=== PATIENT | male | born 1955 | race Caucasian/White ===

== ENCOUNTER 2018-04-26 05:34 | Day surgery (SDC) | payer BC ==
[2018-04-24 16:22] LABS: ALANINE AMINOTRANSFERASE 41 U/L (12-78); ALBUMIN 4.1 g/dL (3.4-5.0); ANION GAP 5 mmol/L (5-15); CALCIUM 8.5 mg/dL (8.5-10.1); CHLORIDE 105 mmol/L (98-107); CREATININE 0.97 mg/dL (0.7-1.3)
[2018-04-24 16:25] LABS: ALKALINE PHOSPHATASE 64 U/L (45-117); BILIRUBIN,TOTAL 0.5 mg/dL (0.2-1.0); TOTAL PROTEIN 7.4 g/dL (6.4-8.2)
[~2018-04-26] VITALS: Ht 198.1 cm; Wt 112.0 kg
[~2018-04-26 05:34] MED LIST: ACTI200C PO; AMLO10TA8 PO; BENA10TA4 PO; FERR-46 PO; FISH1CAP PO; FLUT9.9S NS; LORA10CA PO; MULT-658 PO; PANT40TA5 PO; TRIA1TAB3 PO; TURM500C4 PO
[2018-04-26] MEDS ORDERED: LACTATED RINGERS 1,000 ML IV SCH (06:00)
[2018-04-26 06:04] VITALS: BP 155/94
[2018-04-26] MEDS ORDERED: EPINEPHRINE 1 MG/ML, 1ML ONE (06:15)
[2018-04-26] MEDS ORDERED: BUPIVACAINE/PF 0.25% ONE (06:15)
[2018-04-26] MEDS ORDERED: FENTANYL PF 100 MCG/2ML ONE (06:23)
[2018-04-26] MEDS ORDERED: MIDAZOLAM 1 MG/ML, 2ML ONE (06:24)
[2018-04-26] MEDS ORDERED: GABAPENTIN 300 MG CAPSULE PO ONE (06:30)
[2018-04-26] MEDS ORDERED: ACETAMINOPHEN 500 MG TABLET PO ONE (06:30)
[2018-04-26] MEDS ORDERED: FAMOTIDINE 20 MG TABLET PO ONE (06:30)
[2018-04-26] MEDS ORDERED: ONDANSETRON 2MG/ML, 2ML ONE (06:56)
[2018-04-26] MEDS ORDERED: SUCCINYLCHOLINE 20 MG/ML, 10ML ONE (06:56)
[2018-04-26] MEDS ORDERED: CEFAZOLIN 1,000 MG ONE (06:56)
[2018-04-26] MEDS ORDERED: PHENYLEPHRINE 10 MG/ML ONE (06:56)
[2018-04-26] MEDS ORDERED: DEXAMETHASONE 4 MG/ML, 1ML ONE (06:56)
[2018-04-26] MEDS ORDERED: ROCURONIUM 10 MG/ML,10ML ONE (06:56)
[2018-04-26] MEDS ORDERED: PROPOFOL 10 MG/ML, 20ML ONE (06:56)
[2018-04-26] MEDS ORDERED: ONDANSETRON 2MG/ML, 2ML IV PRN (07:00)
[2018-04-26] MEDS ORDERED: FENTANYL PF 100 MCG/2ML IV PRN (07:00)
[2018-04-26] MEDS ORDERED: MEPERIDINE/PF 25MG/0.5ML IVPush PRN (07:00)
[2018-04-26] MEDS ORDERED: hydrALAzine 20 MG/ML, 1ML IV PRN (07:00)
[2018-04-26] MEDS ORDERED: HYDROmorphone 2 MG/ML, 1ML IVPush PRN (07:00)
[2018-04-26] MEDS ORDERED: OXYcodone 5 MG/5 ML ORAL.SOL UDC PO PRN (07:00)
[2018-04-26] MEDS ORDERED: ONDANSETRON ODT 8 MG PO PRN (07:00)
[2018-04-26] MEDS ORDERED: LABETALOL 5MG/ML, 20ML IV PRN (07:00)
[2018-04-26] MEDS ORDERED: PROMETHAZINE 25 MG/ML, 1ML IV PRN (07:00)
[2018-04-26] MEDS ORDERED: LORazepam 2 MG/ML, 1ML IVPush PRN (07:00)
[2018-04-26] MEDS ORDERED: OXYcodone 5 MG/5 ML ORAL.SOL UDC ONE (08:28)
== END 2018-04-26 10:10 | disposition home or self-care (01) ==
LOC: OUT 05:34
PROVIDERS: ATTEND Orthopaedic Surgery
DX: S43.431A Superior glenoid labrum lesion of right shoulder, initial encounter (principal); M75.111 Incomplete rotator cuff tear or rupture of right shoulder, not specified as traumatic; M75.41 Impingement syndrome of right shoulder; M75.51 Bursitis of right shoulder; X58.XXXA Exposure to other specified factors, initial encounter; Y93.89 Activity, other specified; Y92.89 Other specified places as the place of occurrence of the external cause; Y99.8 Other external cause status; Z88.1 Allergy status to other antibiotic agents; Z88.8 Allergy status to other drugs, medicaments and biological substances
CPT/HCPCS: 29823; 29826; 29827; 36415; 64415; 80053; 93005; C1713; J0330; J0690; J1100; J2250; J2370; J2405; J2704; J3010; J3490; J7120; J0171